=== PATIENT | male | born 1960 | race Caucasian/White ===

== ENCOUNTER 2016-12-30 11:26 | Emergency (ER) | payer SELFPAY ==
[~2016-12-30] VITALS: Ht 185.4 cm; Wt 100.0 kg
[~2016-12-30 11:26] MED LIST: IBUP-238 PO; LORT5TAB PO; Z.0.NO CURRENT MEDS
[2016-12-30 11:27] VITALS: BP 144/79; PULSE 104; RESP 20; TEMP 97.7; O2SAT 97
[2016-12-30] MEDS ORDERED: PENI250T PO (11:38)
[2016-12-30] MEDS ORDERED: CEPHALEXIN MONOHYDRATE 500 MG CAP PO ONE (12:00)
[2016-12-30] MEDS ORDERED: SULFAMETHOXAZOLE-TRIMETHOPRIM DS 800-160 MG TAB PO ONE (12:00)
[2016-12-30] MEDS ORDERED: BACT800T5 PO (12:01)
[2016-12-30] MEDS ORDERED: CEPH-460 PO (12:01)
--- NOTE | 2016-12-30 12:06 | PD ---
HPI Chief Complaint: Skin Problem Time Seen by Provider: 11:50 Travel History International Travel<30 days: No Contact w/Intl Traveler<30days: No Traveled to known affect area: No History of Present Illness HPI 56-year-old male presents for evaluation of an area of skin redness and tenderness along the suprapubic region of his lower abdomen. Symptoms started 2 days ago. Since an area of redness has progressed which prompted evaluation. He reports that the pharmacist gave him an [id number] antibiotic cream which did not seem to help. The pain is mild, aggravated by palpation. He has had no fevers or chills. No intra-abdominal pain. No nausea or vomiting, testicular or scrotal pain. Denies any immunocompromising diseases. He does of her primary care physician locally. No other complaints. PFSH Past Medical History Diminished Hearing: No Hypertension: Yes (STATES DID NOT GET RX REFILLED X 10 YEARS) Social History Alcohol Use: Yes (OCC.) Tobacco Use: Yes (1 PPD) Substance Use: No Allergies-Medications (Allergen,Severity, Reaction): Coded Allergies: No Known Allergies (Verified , 12/30/16) Reported Meds & Prescriptions Reported Meds & Active Scripts Active Reported Penicillin V Potassium 250 Mg Tab 250 Mg PO Q6H took brothers pcn Review of Systems Except as stated in HPI: all other systems reviewed are Neg Physical Exam Narrative GENERAL: Well-developed well-nourished male in no acute distress SKIN: Warm and dry. There is an area of erythema along the suprapubic region of his abdomen. There is some central induration without fluctuance or drainage. The skin overlying the indurated region has been shaved. CARDIOVASCULAR: Regular rate and rhythm. No murmur appreciated. RESPIRATORY: No accessory muscle use. Clear to auscultation. Breath sounds equal bilaterally. GASTROINTESTINAL: Abdomen soft, non-tender, nondistended. Hepatic and splenic margins not palpable. : There is no erythema or induration of the scrotal wall. No tenderness to palpation of the scrotum. There is no inguinal lymphadenopathy. MUSCULOSKELETAL: No obvious deformities. NEUROLOGICAL: Awake and alert. No obvious cranial nerve deficits. Motor grossly within normal limits. Normal speech. Data Data Last Documented VS Vital Signs Date Time Temp Pulse Resp B/P Pulse Ox O2 Delivery O2 Flow Rate FiO2 12/30/16 11:27 97.7 104 20 144/79 97 Room Air Orders Sulfamet-Trimeth Ds 800-160 Mg (Bactrim (12/30/16 12:00) Cephalexin (Keflex) (12/30/16 12:00) [facility] Medical Decision Making Medical Screen Exam Complete: Yes Emergency Medical Condition: Yes Medical Record Reviewed: Yes Differential Diagnosis Cellulitis, cutaneous abscess, erysipelas, necrotizing fasciitis, anasarca, fourniers gangrene Narrative Course 56-year-old male presents with 2 days progressive redness and tenderness of the skin along the suprapubic region. Examination reveals cellulitis with some induration and erythema on the superior region where his waistband circles his abdomen. He reports that he did shave the area after the cellulitis developed. He is nontoxic in appearance. He is afebrile. His abdomen is soft and nontender. There is no genital involvement. There is no inguinal lymphadenopathy. The area of erythema was circled with a surgical marker. The plan is to start the patient on broad-spectrum oral antibiotics and have him follow-up with his primary care physician in 2 days for recheck, return for evidence of worsening infection. He is agreeable with this plan. He is stable for discharge. The first dose of Bactrim and Keflex was given here in the ED. Diagnosis Primary Impression: Cellulitis Qualified Code: L03.311 - Cellulitis of abdominal wall Patient Instructions: Cellulitis (ED), General Instructions Additional Instructions: Warm compresses to the affected area several times a day 10 minutes at a time. Take antibiotics as prescribed. Follow-up with primary care physician in 2 days for recheck. Return for evidence of worsening infection such as increasing soft tissue swelling centrally, increasing area of redness, fevers. Med/Other Pt SpecificInfo: Prescription(s) given Scripts Cephalexin (Keflex)500 Mg [id number] Mg PO Q6H 10 Days Ref 0 Prov:Nicanor Camara MD 12/30/16 Sulfamethoxazole-Trimethoprim (Bactrim DS)800-160 Mg Tab1 Tab PO BID #20 TAB Ref 0 Prov:Nicanor Camara MD 12/30/16 Disposition: 01 DISCHARGE HOME Condition: Stable Price Amaya Dec 30, 2016 12:06
== END 2016-12-30 13:14 | disposition home or self-care (01) ==
LOC: NEPB 11:26
DX: L03.311 Cellulitis of abdominal wall (principal); F17.210 Nicotine dependence, cigarettes, uncomplicated
CPT/HCPCS: 99283